=== PATIENT | female | born 1955 | race Caucasian/White ===

== ENCOUNTER → 2016-03-26 | Outpatient (CLI) | payer BC ==
[~2016-03-26] MED LIST: CALC500C70 PO; CETI10TA84 PO; CHOL1000 PO; GLUCTAB7 PO; MULT-506 PO; OMEG10007 PO; PRM625 PO; PROB1TAB16 PO; VALA500T60 PO; VITACAP26 PO
== END | disposition home or self-care (01) ==
LOC: C.PAPS 10:37
PROVIDERS: ATTEND Obstetrics & Gynecology
DX: Z01.419 Encounter for gynecological examination (general) (routine) without abnormal findings (principal)

== ENCOUNTER → 2016-08-06 | Outpatient (CLI) | payer BC ==
--- NOTE | 2016-08-07 13:55 | MAMMOGRAPHY REPORT ---
BILATERAL DIGITAL SCREENING MAMMOGRAM TOMOSYNTHESIS WITH CAD: 08/06/2016 CLINICAL HISTORY: Routine screening. Patient has no complaints. TECHNIQUE: Breast tomosynthesis in addition to standard 2D mammography was performed. Current study was also evaluated with a Computer Aided Detection (CAD) system. COMPARISON: Comparison is made to exams dated: 04/12/2015 mammogram, 03/23/2014 mammogram, 01/30/2013 m ammogram, 01/22/2012 mammogram, 01/14/2011 mammogram, and 01/09/2010 mammogram - [facility]. BREAST COMPOSITION: The tissue of both breasts is extremely dense, which lowers the sensitivity of m ammography. FINDINGS: No suspicious masses, calcifications, or areas of architectural distortion are noted in ei ther breast. There has been no significant interval change compared to prior exams. IMPRESSION: ACR BI-RADS CATEGORY 1: NEGATIVE There is no mammographic evidence of malignancy. A 1 year screening mammogram is recommended. The pa tient will receive written notification of the results. Approximately 10% of breast cancers are not detected with mammography. A negative mammographic report should not delay biopsy if a clinically suggestive mass is present. Nay Xie M.D. /:08/06/2016 16:31:47 Director Of Exhibits: Delmi DILLARD(Jr)(M), [facility] letter sent: Normal 1/2 BI-RADS Code: ACR BI-RADS Category 1: Negative
== END | disposition home or self-care (01) ==
LOC: C.MAMM 15:19
PROVIDERS: ATTEND Obstetrics & Gynecology
DX: Z12.31 Encounter for screening mammogram for malignant neoplasm of breast (principal)

== ENCOUNTER → 2016-08-31 | Outpatient (CLI) | payer BC ==
--- NOTE | 2016-08-31 12:40 | DIAGNOSTIC IMAGING REPORT ---
ULTRASOUND OF THE PELVIS CLINICAL HISTORY: Pelvic pain. COMPARISON STUDY: Pelvic CT dated 09/22/2011. TECHNIQUE: Real-time, grayscale, and color flow sonography of the pelvis is performed both transabdominally and endovaginally. Images are reviewed in the transverse and longitudinal planes. FINDINGS: Uterus: The uterus is surgically absent Ovaries: The ovaries were not visualized on the transabdominal or endovaginal images. Pelvis: There is no free fluid in the cul-de-sac. No concerning adnexal lesion is seen. IMPRESSION: 1. No acute sonographic abnormality is identified. 2. The uterus is surgically absent. 3. The ovaries were not visualized. Electronically signed by: Dash Manzano M.D. 08/31/2016 12:39 PM Dictated Date/Time: 08/31/2016 12:37 PM
== END | disposition home or self-care (01) ==
LOC: C.ULTR 12:02
PROVIDERS: ATTEND Physician Assistant
DX: R10.9 Unspecified abdominal pain (principal)

== ENCOUNTER 2016-10-07 23:04 | Emergency (ER) | payer BC ==
[~2016-10-07] VITALS: Ht 165.1 cm; Wt 60.4 kg
[~2016-10-07 23:04] MED LIST changes: -CALC500C70 PO; -CETI10TA84 PO; -CHOL1000 PO; -GLUCTAB7 PO; -MULT-506 PO; -OMEG10007 PO; -PROB1TAB16 PO; -VALA500T60 PO; -VITACAP26 PO
[2016-10-07 23:18] VITALS: TEMP 36.4; Ht 165.1 cm; Wt 60.4 kg
[2016-10-07] MEDS ORDERED: MULT-506 PO (23:31)
[2016-10-07] MEDS ORDERED: VITACAP26 PO (23:32)
[2016-10-07] MEDS ORDERED: CHOL1000 PO (23:32)
[2016-10-07] MEDS ORDERED: CETI10TA84 PO (23:33)
[2016-10-07] MEDS ORDERED: CALC500C70 PO (23:33)
[2016-10-07] MEDS ORDERED: PROB1TAB16 PO (23:34)
[2016-10-07] MEDS ORDERED: OMEG10007 PO (23:36)
[2016-10-07] MEDS ORDERED: VALA500T60 PO (23:36)
[2016-10-07] MEDS ORDERED: GLUCTAB7 PO (23:37)
[2016-10-07] MEDS ORDERED: ACETAMINOPHEN 325 MG TAB PO STA (23:58)
--- NOTE | 2016-10-08 00:53 | EMERGENCY ROOM VISIT NOTE ---
History Report prepared by Alber: Allie Godfrey Under the Supervision of: Dr. Karyn Orozco M.D. First contact with patient: 23:26 Chief Complaint: HEAD INJURY (MINOR) Stated Complaint: INCREASING PRESSURE IN HEAD AFTER FALL History of Present Illness The patient is a 61 year old female who presents to the Emergency Room with complaints of persistent headache starting 2100 today. The patient was helping her change a light bulb. She bent down to picker tender the light bulb when she hit her head on the ladder. A bump started forming immediately and she has had head pain since then which she describes as a pressure. She currently rates her discomfort as a 5/10 in severity. She has not taken any medications for her headache. She reports some nausea. She denies any LOC, neck pain, fever, vomiting, vision changes, or dizziness. She is able to ambulate normally. She is not on any blood thinners. Source of History: patient Onset: 2100 Position: head Symptom Intensity: 5/10 Quality: pressure, other Timing: other (persistent) Associated Symptoms: + nausea, No LOC, No fevers, No neck pain, No vomiting Note: Pt denies vision changes, dizziness. Review of Systems See HPI for pertinent positives & negatives. A total of 10 systems reviewed and were otherwise negative. Past Medical & Surgical Surgical Problems: (1) H/O oophorectomy (2) Hx of appendectomy (3) Hx of cholecystectomy Family History Diabetes mellitus Diabetes mellitus Gallbladder disease Hypertension Lung disease Social History Smoking Status: Never Smoker Marital Status: Housing Status: lives with significant other Occupation Status: employed Current/Historical Medications Scheduled Calcium/Vitamin D (Os-Brando 500 Plus D), 1 TAB PO DAILY Cetirizine (Zyrtec), 10 MG PO DAILY Cholecalciferol (Vitamin D3), Unknown Dose PO DAILY Estrogens, Conjugated (Premarin), 0.625 MG PO DAILY Fish Oil ([place]-3), 1 CAP PO DAILY Mcwafioyjgd-Nmkhwlkesia-Rbc C- (Glucosamine Chondroitin), 1 TAB PO DAILY Multivitamin (Multivitamin), 1 TAB PO DAILY Probiotic Product (Probiotic), 1 TAB PO DAILY Vitamins C & E (Vitamin C), 1 CAP PO DAILY Scheduled PRN Valacyclovir (Valtrex), 1,000 MG PO BID PRN for cold sore Allergies Coded Allergies: Sulfa Drugs (Unverified Allergy, Mild, 10/07/16) Physical Exam Vital Signs Date Time Temp Pulse Resp B/P (MAP) Pulse Ox O2 Delivery O2 Flow Rate FiO2 10/08/16 01:04 65 20 124/68 99 10/07/16 23:18 36.4 68 18 126/70 95 Room Air Physical Exam Vital signs reviewed. General: Well-appearing female, in no significant distress. HEENT: No scleral icterus, PERRLA, neck supple. Mild small hematoma to the middle of her forehead. TMs are clear. Cardiovascular: Regular rate and rhythm, no extra sounds. Pulmonary: Clear to auscultation bilaterally, normal work of breathing. Abdomen: Soft, nontender, nondistended, positive bowel sounds. Musculoskeletal: Atraumatic, no peripheral edema. Neurologic: Patient awake alert and oriented x 3, full strength in all 4 extremities. Cranial nerves 2 through 12 grossly intact. Skin: Warm, dry, no rash Medical Decision & Procedures Medications Administered Medications (Trade) Dose Ordered Sig/Iris Route Start Time Stop Time Status Last Admin Dose Admin Acetaminophen (Tylenol Tab) 650 mg NOW STAT PO 10/07/16 23:58 10/07/16 23:59 DC 10/08/16 00:16 650 MG ED Course 2342: The student evaluated the patient at this time. We discussed her findings , differentials, and treatment plan. 2353: Past medical records reviewed. The patient was evaluated in room B3B. A complete history and physical examination was performed. 2358: Acetaminophen 650 mg PO. 0036: Upon reevaluation, the patient was resting comfortably. I discussed findings with her. She verbalized agreement of the treatment plan. She was discharged home. Medical Decision Differential diagnosis: Intracranial hemorrhage, intracranial mass, migraine headache, tension headache , sinusitis, meningitis This patient was evaluated and appeared to be in no significant distress. Patient was given Tylenol. She was observed in the ER for short period of time. We did have a discussion regarding the risks and benefits of a CAT scan at this time. Without loss of consciousness, vomiting or mental status changes , I do not feel that the mechanism is significant enough to warrant radiation at this time. The patient and I had a long discussion with the present. At this time we will avoid a CAT scan. They will watch for signs of altered mental status. They were given a head injury handout. The patient will return to the ER for worsening of symptoms or any medical concerns and follow-up with her PCP this week. Head Trauma GCS Score: 15 Medication Reconcilliation Current Medication List: was personally reviewed by me Blood Pressure Screening Patient's blood pressure: Normal blood pressure Blood pressure disposition: Did not require urgent referral Impression Primary Impression: Closed head injury Scribe Attestation The scribe's documentation has been prepared under my direction and personally reviewed by me in its entirety. I confirm that the note above accurately reflects all work, treatment, procedures, and medical decision making performed by me. Departure Information Dispostion Home / Self-Care Referrals Wilman Vance M.D. (PCP) Forms HOME CARE DOCUMENTATION FORM, IMPORTANT VISIT INFORMATION Patient Instructions ED Head Injury Closed, My [facility] Additional Instructions Diagnosis: Closed head injury Tylenol 650 mg every 6 hours as needed for pain. Drink plenty of clear fluids. Follow-up with your physician this week for reevaluation. Return to the ER for worsening of symptoms or any medical concerns.
[2016-10-08 01:04] VITALS: BP 124/68; PULSE 65; O2SAT 99
== END 2016-10-08 01:05 | disposition home or self-care (01) ==
LOC: C.EDB 23:05
DX: S09.90XA Unspecified injury of head, initial encounter (principal); R51 Headache; R11.0 Nausea; W22.8XXA Striking against or struck by other objects, initial encounter

== ENCOUNTER → 2017-04-05 | Outpatient (CLI) | payer BC ==
[~2017-04-05] MED LIST changes: +CALC500C70 PO; +CETI10TA84 PO; +CHOL1000 PO; +GLUCTAB7 PO; +MULT-506 PO; +OMEG10007 PO; +PROB1TAB16 PO; +VALA500T60 PO; +VITACAP26 PO
== END | disposition home or self-care (01) ==
LOC: C.MAMM 08:42
PROVIDERS: ATTEND Internal Medicine
DX: M79.7 Fibromyalgia (principal); M85.89 Other specified disorders of bone density and structure, multiple sites